=== PATIENT | female | born 1960 | race Caucasian/White ===

== ENCOUNTER 2016-12-05 12:58 | Emergency (ER) | payer OTHER ==
[~2016-12-05] VITALS: Wt 90.7 kg
[~2016-12-05 12:58] MED LIST: ALDACTONE25 M1 PO; ALPRAZOLAM XR0.5 MG PO; ALPRAZOLAM0.25 M2 PO; ALPRAZOLAM0.5 MG PO; ASPIRIN ADULT L81 M1 PO; ASPIRIN FOR CHI81 MG PO; ASPIRIN81 M1 PO; ATIVAN1 MG PO; COL-RITE100 M1 PO; COMPAZINE10 M1 PO; EFFIENT10 M1 PO; FISH OIL 500MG500 MG PO; GLUTAMENT10 GM PO; HYDROCODONE-CHLO5 ML PO; INCRUSE EL62.5 MCG/A IH; K-Lor 20MEQ20 MEQ PO; KEFLEX500 MG PO; KLOR-CON 1010 ME1 PO; LASIX40 MG PO; LIPITOR20 MG PO; LIPITOR40 MG PO; LOPRESSOR PO; LOPRESSOR25 MG PO; Lopressor25 MG PO; MAGNESIUM250 M1 PO; NAPROSYN500 MG PO; NITROSTAT0.4 MG SL; OSTEO BI-FLEX1 EAC1 PO; OXYCODONE AND A1 TA4 PO; PLAVIX75 MG PO; POTASSIUM20 MEQ PO; PRINIVIL5 M1 PO; PROTONIX TR40 MG PO; PROTONIX20 MG PO; PROTONIX40 MG PO; STOMACH PILL; TRAMADOL HCL50 MG PO; VICODIN 5/500 505 MG PO; XANAX0.25 MG PO; ZOFRAN ODT4 MG SL; ZYRTEC10 MG PO; Zofran4 MG PO
[2016-12-05] MEDS ORDERED: PROTONIX40 MG PO (13:34)
[2016-12-05] MEDS ORDERED: LASIX20 MG PO (13:34)
[2016-12-05] MEDS ORDERED: VITAMIN D5000 I3 PO (13:35)
[2016-12-05] MEDS ORDERED: DUONEB 3 MG/3 ML3 M1 INH (13:36)
[2016-12-05] MEDS ORDERED: PULMICORT RESP0.5 MG INH (13:37)
[2016-12-05 13:42] LABS: HEMATOCRIT 38.8 % (37.0-47.0); MEAN CELL VOLUME 100.3 fl (81.0-99.0); MEAN CORPUSCULAR HGB 33.6 pg (27.0-31.0); MEAN CORPUSCULAR HGB CONC 33.5 g/dl (33.0-37.0); MEAN PLATELET VOLUME 9.7 fl (9.6-12.3); PLATELET COUNT AUTOMATED 206 10*3/uL (130-400); RED BLOOD COUNT 3.87 10*6/uL (4.10-5.10); RED CELL DISTRI WIDTH 14.4 % (0-14.5); WHITE BLOOD COUNT 13.6 10*3/uL (4.8-10.8)
[2016-12-05 13:51] LABS: PROTHROMBIN TIME 10.6 SECONDS (9.0-12.4)
[2016-12-05 13:54] VITALS: BP 96/61
[2016-12-05 14:00] LABS: ALKALINE PHOSPHATASE 138 U/L (45-117); BILIRUBIN, TOTAL 0.4 mg/dl (0.2-1.0); BUN 28 mg/dl (7-24); CARBON DIOXIDE 24 mmol/L (21-32); CHLORIDE 109 mmol/L (98-107); EST GLOM FILT AFRICAN AMERICAN 52 ml/min; GLUCOSE 159 mg/dL (65-99); POTASSIUM 4.7 mmol/L (3.5-5.1); SGOT/AST 32 IU/L (3-35); SGPT/ALT 39 U/L (12-78); SODIUM 140 mmol/L (136-145); TOTAL PROTEIN 6.2 gm/dL (6.4-8.2)
[2016-12-05 14:01] LABS: LYMPHOCYTE # 0.8 10*3/uL (1.3-4.4); METAMYELOCYTES 1 % (0-0); NEUTROPHIL # 12.6 10*3/uL (2.3-7.9); NEUTROPHILS 93 % (47-73); PLATELET SUFFICIENCY NORMAL (NORMAL); TOTAL CELLS COUNTED 100 #CELLS
[2016-12-05 14:02] LABS: TROPONIN I < 0.015 ng/ml (<0.045)
[2016-12-05] MEDS ORDERED: LEVAQUIN750 M1 PO (17:34)
== END 2016-12-05 17:33 | disposition home or self-care (01) ==
LOC: ED 12:58
PROVIDERS: Emergency Medicine
DX: C34.90 Malignant neoplasm of unspecified part of unspecified bronchus or lung (principal); J18.9 Pneumonia, unspecified organism; I25.10 Atherosclerotic heart disease of native coronary artery without angina pectoris; Z90.49 Acquired absence of other specified parts of digestive tract; Z88.6 Allergy status to analgesic agent; Z79.82 Long term (current) use of aspirin; Z95.5 Presence of coronary angioplasty implant and graft; Z79.899 Other long term (current) drug therapy

== ENCOUNTER 2018-01-05 12:39 | Emergency (ER) | payer OTHER, MEDICAID ==
[~2018-01-05] VITALS: Ht 172.7 cm; Wt 92.1 kg
[~2018-01-05 12:39] MED LIST changes: +DUONEB 3 MG/3 ML3 M1 INH; +LASIX20 MG PO; +LEVAQUIN750 M1 PO; +OPDIVO40 MG/4 ML IV; +OXYCODONE HCL5 MG PO; +PULMICORT RESP0.5 MG INH; +VITAMIN D5000 I3 PO; +ZOFRAN8 M1 PO
[2018-01-05 13:09] LABS: BASO % 0.3 % (0.0-1.0); EOS # 0.1 10*3/uL (0.0-0.4); EOS % 1.7 % (1.0-4.0); HEMATOCRIT 38.6 % (37.0-47.0); HEMOGLOBIN 12.6 g/dl (12.0-16.0); LYMPH # 1.2 10*3/uL (1.3-4.4); LYMPH % 15.6 % (27.0-41.0); MEAN CELL VOLUME 102.4 fl (81.0-99.0); MEAN CORPUSCULAR HGB 33.4 pg (27.0-31.0); MEAN CORPUSCULAR HGB CONC 32.6 g/dl (33.0-37.0); MEAN PLATELET VOLUME 9.6 fl (9.6-12.3); MONO # 0.6 10*3/uL (0.1-1.0); MONO % 7.6 % (3.0-9.0); NEUT # 5.8 10*3/uL (2.3-7.9); NEUT % 74.5 % (47.0-73.0); PLATELET COUNT AUTOMATED 236 10*3/uL (130-400); RED BLOOD COUNT 3.77 10*6/uL (4.10-5.10); RED CELL DISTRI WIDTH 12.1 % (0-14.5); WHITE BLOOD COUNT 7.8 10*3/uL (4.8-10.8)
[2018-01-05 13:25] LABS: ALBUMIN 2.9 gm/dl (3.1-4.5); ALKALINE PHOSPHATASE 160 U/L (45-117); BUN 18 mg/dl (7-24); CHLORIDE 103 mmol/L (98-107); CREATININE 1.16 mg/dL (0.55-1.02); POTASSIUM 4.2 mmol/L (3.5-5.1); SGOT/AST 28 IU/L (3-35); SGPT/ALT 22 U/L (12-78); SODIUM 141 mmol/L (136-145); TOTAL PROTEIN 6.3 gm/dL (6.4-8.2)
[2018-01-05 13:27] LABS: TROPONIN I < 0.015 ng/ml (<0.045)
[2018-01-05 15:48] VITALS: BP 125/61
[2018-01-05 15:54] LABS: BILIRUBIN NEGATIVE (NEGATIVE); BLOOD NEGATIVE (NEGATIVE); CLARITY CLEAR (CLEAR); COLOR YELLOW (YELLOW); GLUCOSE NEGATIVE (NEGATIVE); KETONE NEGATIVE (NEGATIVE); LEUKO ESTERASE TRACE (NEGATIVE); NITRITE NEGATIVE (NEGATIVE); PH 5.5 (5.0-9.0); SPECIFIC GRAVITY <= 1.005 (1.005-1.030); UROBILINOGEN 0.2 E.U./dl (0.2-1.0)
[2018-01-05 16:03] LABS: BACTERIA TRACE; EPITHELIAL CELLS TNTC; RBC 0-2 rbc/hpf (0-2)
== END 2018-01-05 16:41 | disposition short-term general hospital (02) ==
LOC: ED 12:39
PROVIDERS: Emergency Medicine
DX: R55 Syncope and collapse (principal); R42 Dizziness and giddiness; I25.10 Atherosclerotic heart disease of native coronary artery without angina pectoris; I25.2 Old myocardial infarction; I95.9 Hypotension, unspecified; Z90.710 Acquired absence of both cervix and uterus; Z98.890 Other specified postprocedural states; Z88.5 Allergy status to narcotic agent; Z79.82 Long term (current) use of aspirin; Z79.899 Other long term (current) drug therapy; Z85.118 Personal history of other malignant neoplasm of bronchus and lung; Z99.81 Dependence on supplemental oxygen

== ENCOUNTER → 2018-07-09 | Outpatient (CLI) | payer OTHER, MEDICAID ==
[~2018-07-09] MED LIST changes: +CIPRO500 MG PO; +EFFIENT5 MG PO; +FLAGYL500 MG PO; +FOLTX TABLET1 EACH PO; +LEVALBUTER0.63 MG/4 INH; +MAGNESIUM OXID400 MG PO; +NEURONTIN100 MG PO; +OXYGEN NAS; +PROAIR HFA8.5 GM INH
== END | disposition home or self-care (01) ==
DX: R05 Cough (principal)

== ENCOUNTER 2019-07-30 15:37 | Inpatient (IN) | payer OTHER ==
[~2019-07-30] VITALS: Ht 175.2 cm; Wt 95.8 kg
[2019-07-30 15:43] VITALS: BP 63/43
[2019-07-30 15:52] VITALS: BP 112/80
[2019-07-30] MEDS ORDERED: BUSPAR15 MG PO (15:58)
[2019-07-30] MEDS ORDERED: ATENOLOL25 MG PO (15:59)
[2019-07-30] MEDS ORDERED: TESSALON PERLE100 MG PO (16:03)
[2019-07-30] MEDS ORDERED: BROVANA15 MCG/2 M INH (16:04)
[2019-07-30 16:25] VITALS: BP 110/82
[2019-07-30 17:15] VITALS: BP 112/74
[2019-07-30 17:28] LABS: BASO % 0.2 % (0.0-1.0); EOS # 0.2 10*3/uL (0.0-0.4); EOS % 2.1 % (1.0-4.0); HEMATOCRIT 37.3 % (37.0-47.0); HEMOGLOBIN 12.2 g/dl (12.0-16.0); LYMPH # 1.2 10*3/uL (1.3-4.4); LYMPH % 12.6 % (27.0-41.0); MEAN CELL VOLUME 98.4 fl (81.0-99.0); MEAN CORPUSCULAR HGB 32.2 pg (27.0-31.0); MEAN CORPUSCULAR HGB CONC 32.7 g/dl (33.0-37.0); MEAN PLATELET VOLUME 9.8 fl (9.6-12.3); MONO # 0.8 10*3/uL (0.1-1.0); MONO % 8.5 % (3.0-9.0); NEUT # 7.5 10*3/uL (2.3-7.9); NEUT % 76.4 % (47.0-73.0); PLATELET COUNT AUTOMATED 285 10*3/uL (130-400); RED BLOOD COUNT 3.79 10*6/uL (4.10-5.10); RED CELL DISTRI WIDTH 13.4 % (0-14.5); WHITE BLOOD COUNT 9.8 10*3/uL (4.8-10.8)
[2019-07-30 17:38] LABS: ACT PARTIAL THROMBO TIME 20.3 SECONDS (20.0-32.1); INTERNATIONAL NORM RATIO 0.9 (2.0-3.5)
[2019-07-30 17:43] LABS: ALBUMIN 2.9 gm/dl (3.1-4.5); CREATININE 1.23 mg/dL (0.55-1.02); POTASSIUM 4.5 mmol/L (3.5-5.1); TOTAL PROTEIN 6.6 gm/dL (6.4-8.2)
--- NOTE | 2019-07-30 18:00 | NUR ---
PT IN BED RESING IN FOWLERS POSITIOIN PT STATES SHE FEELS FINE LONG SHE DOES NOT EXERT HERSELF PT HAS NO REQUESTS AT THIS TIME
[2019-07-30 19:20] VITALS: BP 110/64
[2019-07-30 21:10] VITALS: BP 127/60
[2019-07-30] MEDS ORDERED: LASIX20 MG PO (21:41)
[2019-07-30] MEDS ORDERED: CELEXA20 MG PO (21:43)
[2019-07-30] MEDS ORDERED: PREDNISONE5 MG PO (21:44)
--- NOTE | 2019-07-30 22:21 | NUR ---
A 58, admitted to 5E, under the services of ARACELY Mcdaniels DO with a diagnosis of COPD. Chief complaint is SOB. Patient arrived via ambulatory from ER. Monitor applied. Initial assessment completed. Vital signs taken and recorded. ARACELY MCDANIELS DO notified of admission to the unit. Orders received. See assessment for past medical history, medications and allergies. Patient and/or family oriented to unit. [address] visitation policy reviewed. Clothing/patient valuable form completed. MARIA ESTHER HAZEL
[2019-07-31] VITALS: BP 105/63
--- NOTE | 2019-07-31 00:38 | NUR ---
PT C/O THAT SHE "WOKE UP COVERED IN SWEAT." PT CONTINUES TO BE AFEBRILE AT THIS TIME WITH A TEMPERATURE OF 97.8 PT PROVIDED WITH REQUESTED LINENS, NO OTHER CONCERNS VOICED AT THIS TIME. WILL CONTINUE TO MONITOR.
--- NOTE | 2019-07-31 06:42 | NUR ---
DR DOUGLAS NOTIFIED OF CONSULT.
[2019-07-31 06:44] LABS: HEMATOCRIT 36.5 % (37.0-47.0); HEMOGLOBIN 11.7 g/dl (12.0-16.0); MEAN CELL VOLUME 98.4 fl (81.0-99.0); MEAN CORPUSCULAR HGB 31.5 pg (27.0-31.0); MEAN CORPUSCULAR HGB CONC 32.1 g/dl (33.0-37.0); MEAN PLATELET VOLUME 10.1 fl (9.6-12.3); PLATELET COUNT AUTOMATED 202 10*3/uL (130-400); RED BLOOD COUNT 3.71 10*6/uL (4.10-5.10); RED CELL DISTRI WIDTH 13.2 % (0-14.5); WHITE BLOOD COUNT 5.9 10*3/uL (4.8-10.8)
[2019-07-31 07:01] LABS: POTASSIUM 4.5 mmol/L (3.5-5.1)
[2019-07-31 07:14] LABS: PLATELET SUFFICIENCY NORMAL (NORMAL); TOTAL CELLS COUNTED 100 #CELLS
[2019-07-31 07:16] LABS: CREATININE 1.15 mg/dL (0.55-1.02); THYROID STIM HORMONE (HS) 0.713 uIU/ml (0.358-4.75)
[2019-07-31 07:26] LABS: VITAMIN D, 25-HYDROXY 33.5 ng/mL (30-100)
--- NOTE | 2019-07-31 07:53 | NUR ---
ASSESSMENT COMPLETE, PT STATES WAS UP TO BATHROOM RECENTLY AND DID NOT FEEL SHORT OF BRAETH, OXYGEN 4 LITERS NC. NO SOB NOTED AT THIS TIME. PT STATES NO NEEDS AT THIS TIME
[2019-07-31 08:00] VITALS: BP 118/84
--- NOTE | 2019-07-31 10:11 | NUR ---
Patient resides at home with her . She is independent in ADLs. Pt has home O2 through [employer]. She has a walker but has not used it in quite some time. Patient previously had home health through [facility]. Anticipate pt discharging home without additional needs.
[2019-07-31 12:00] VITALS: BP 120/61
[2019-07-31 16:00] VITALS: BP 106/68
--- NOTE | 2019-07-31 19:11 | NUR ---
24 HR CHART CHECK COMPLETE.
[2019-07-31 20:00] VITALS: BP 103/53
[2019-08-01] VITALS: BP 101/60
[2019-08-01 06:49] LABS: HEMOGLOBIN 11.1 g/dl (12.0-16.0); MEAN CELL VOLUME 97.4 fl (81.0-99.0); MEAN CORPUSCULAR HGB 31.8 pg (27.0-31.0); MEAN CORPUSCULAR HGB CONC 32.6 g/dl (33.0-37.0); MEAN PLATELET VOLUME 10.1 fl (9.6-12.3); PLATELET COUNT AUTOMATED 261 10*3/uL (130-400); RED BLOOD COUNT 3.49 10*6/uL (4.10-5.10); RED CELL DISTRI WIDTH 13.3 % (0-14.5)
[2019-08-01 06:58] LABS: CREATININE 1.13 mg/dL (0.55-1.02); POTASSIUM 3.6 mmol/L (3.5-5.1)
[2019-08-01 07:43] LABS: PLATELET SUFFICIENCY NORMAL (NORMAL); TOTAL CELLS COUNTED 100 #CELLS
[2019-08-01 08:00] VITALS: BP 113/56
--- NOTE | 2019-08-01 09:00 | NUR ---
Sample Preparation Supervisor in to see patient. No new needs or request at this time. Discussed discharge planning with patient. She lives at home with her . Discussed home health care services and she is agreeable and would like PT services at home and here at the hospital. When provided with a list of agencies she chose [facility]. Notified Dr. Alcala of patient's wishes to have PT started while her at the hospital. She has a portable O2 tank in the closet. She states her , daughter, or son will provide transportation on discharge depending on when and who is available.
[2019-08-01 12:00] VITALS: BP 108/62
--- NOTE | 2019-08-01 15:40 | NUR ---
PHYSICAL THERAPY Chart review and pt interview done, but pt very fatigued this afternoon and requested wait. Will complete eval 08/02/19 and pt looking forward to getting stronger/being able to more easily naviagte her stairs to her 2nd floor bedroom. Kayli Leblanc, PT
[2019-08-01 16:00] VITALS: BP 108/61
[2019-08-01 20:00] VITALS: BP 104/57
--- NOTE | 2019-08-01 20:12 | NUR ---
PATIENT MEDICATED WITH ROXICODONE FOR COMPLAINTS OF 02/19. NO OTHER COMPLAINTS VOICED AT THIS TIME. WILL CHECK EFFECTIVENESS.
[2019-08-02] VITALS: BP 110/62
[2019-08-02 07:00] LABS: HEMATOCRIT 32.2 % (37.0-47.0); HEMOGLOBIN 10.4 g/dl (12.0-16.0); MEAN CELL VOLUME 99.4 fl (81.0-99.0); MEAN CORPUSCULAR HGB 32.1 pg (27.0-31.0); MEAN CORPUSCULAR HGB CONC 32.3 g/dl (33.0-37.0); PLATELET COUNT AUTOMATED 223 10*3/uL (130-400); RED BLOOD COUNT 3.24 10*6/uL (4.10-5.10); RED CELL DISTRI WIDTH 13.6 % (0-14.5); WHITE BLOOD COUNT 16.9 10*3/uL (4.8-10.8)
[2019-08-02 07:11] LABS: CREATININE 1.15 mg/dL (0.55-1.02); POTASSIUM 4.3 mmol/L (3.5-5.1)
[2019-08-02 07:19] LABS: TOTAL CELLS COUNTED 100 #CELLS
[2019-08-02 07:20] LABS: PLATELET SUFFICIENCY NORMAL (NORMAL)
[2019-08-02 08:00] VITALS: BP 127/69
--- NOTE | 2019-08-02 08:40 | NUR ---
PT SITTING UP AT SIDE OF BED. RESP-EASY AND REGULAR. NO C/O AT THIS TIME. CALL LIGHT IN REACH. OXYGEN IN USE. SEE SHIFT ASSESSMENT.
--- NOTE | 2019-08-02 10:27 | NUR ---
PHYSICAL THERAPY Aneudy completed full report to follow pt low level of complexity 16267 recomend discharge to home with f/u home health. PT to work on transfers,amb with AD, balance/safety, strengthening and energy conservation techniques. Sharifa Delaney PT
[2019-08-02] MEDS ORDERED: PREDNISONE10 MG PO (10:46)
[2019-08-02] MEDS ORDERED: ZITHROMAX250 MG PO (10:46)
--- NOTE | 2019-08-02 11:45 | NUR ---
Discharge instructions reviewed with patient/family. Patient receptive and verbalizes understanding. Follow-up care arranged. Written instructions given to patient/family. HEPLOCK REMOVED 2X2 APPLIED. PT ESCORTED VIA WHEELCHAIR FOR DISCHARGE WITH HER PORTABLE OXYGEN TANK. MANE MURO R
--- NOTE | 2019-08-02 11:55 | NUR ---
New home health referral order faxed to [facility]
== END 2019-08-02 11:45 | disposition home health service (06) | DRG 871 ==
LOC: ED 15:37 → EDHOLD 20:15 → ED 20:15 → 5E 20:40 → EDHOLD 20:40 → 5E 21:01
PROVIDERS: Emergency Medicine; Family Medicine; Internal Medicine; Student in an Organized Health Care Education/Training Program; ADMIT Family Medicine
DX: A41.9 Sepsis, unspecified organism (principal); J18.9 Pneumonia, unspecified organism; J44.1 Chronic obstructive pulmonary disease with (acute) exacerbation; E44.0 Moderate protein-calorie malnutrition; J44.0 Chronic obstructive pulmonary disease with (acute) lower respiratory infection; M48.54XA Collapsed vertebra, not elsewhere classified, thoracic region, initial encounter for fracture; J96.11 Chronic respiratory failure with hypoxia; C79.51 Secondary malignant neoplasm of bone; I25.10 Atherosclerotic heart disease of native coronary artery without angina pectoris; J84.10 Pulmonary fibrosis, unspecified; J20.9 Acute bronchitis, unspecified; E66.9 Obesity, unspecified; R65.20 Severe sepsis without septic shock; N18.3 Chronic kidney disease, stage 3 (moderate); Z87.891 Personal history of nicotine dependence; Z85.118 Personal history of other malignant neoplasm of bronchus and lung; I25.2 Old myocardial infarction; Z88.5 Allergy status to narcotic agent; Z92.21 Personal history of antineoplastic chemotherapy; Z90.710 Acquired absence of both cervix and uterus; Z90.49 Acquired absence of other specified parts of digestive tract; Z98.891 History of uterine scar from previous surgery; Z82.49 Family history of ischemic heart disease and other diseases of the circulatory system; Z84.1 Family history of disorders of kidney and ureter; Z80.8 Family history of malignant neoplasm of other organs or systems; Z79.82 Long term (current) use of aspirin; Z79.899 Other long term (current) drug therapy; Z92.3 Personal history of irradiation; Z68.30 Body mass index [BMI] 30.0-30.9, adult

== ENCOUNTER 2019-09-18 12:50 | Emergency (ER) | payer OTHER ==
[~2019-09-18] VITALS: Ht 175.2 cm; Wt 93.9 kg
[~2019-09-18 12:50] MED LIST changes: +ATENOLOL25 MG PO; +BROVANA15 MCG/2 M INH; +BUSPAR15 MG PO; +CELEXA20 MG PO; +PREDNISONE10 MG PO; +PREDNISONE5 MG PO; +TESSALON PERLE100 MG PO; +ZITHROMAX250 MG PO
[2019-09-18 13:12] VITALS: BP 110/68
[2019-09-18 13:45] LABS: BASO % 0.2 % (0.0-1.0); EOS # 0.1 10*3/uL (0.0-0.4); EOS % 1.2 % (1.0-4.0); HEMOGLOBIN 12.9 g/dl (12.0-16.0); LYMPH # 0.9 10*3/uL (1.3-4.4); LYMPH % 9.2 % (27.0-41.0); MEAN CELL VOLUME 99.8 fl (81.0-99.0); MEAN CORPUSCULAR HGB 32.2 pg (27.0-31.0); MEAN CORPUSCULAR HGB CONC 32.3 g/dl (33.0-37.0); MEAN PLATELET VOLUME 9.8 fl (9.6-12.3); MONO # 0.7 10*3/uL (0.1-1.0); NEUT # 7.6 10*3/uL (2.3-7.9); NEUT % 82.1 % (47.0-73.0); PLATELET COUNT AUTOMATED 272 10*3/uL (130-400); RED BLOOD COUNT 4.01 10*6/uL (4.10-5.10); RED CELL DISTRI WIDTH 13.6 % (0-14.5); WHITE BLOOD COUNT 9.2 10*3/uL (4.8-10.8)
[2019-09-18 13:55] LABS: ACT PARTIAL THROMBO TIME 25.1 SECONDS (20.0-32.1)
[2019-09-18 14:11] LABS: ALBUMIN 2.7 gm/dl (3.1-4.5); ALKALINE PHOSPHATASE 193 U/L (45-117); BUN 16 mg/dl (7-24); CHLORIDE 98 mmol/L (98-107); CREATININE 1.11 mg/dL (0.55-1.02); POTASSIUM 4.1 mmol/L (3.5-5.1); SGOT/AST 28 IU/L (3-35); SGPT/ALT 22 U/L (12-78); SODIUM 134 mmol/L (136-145); TOTAL PROTEIN 6.3 gm/dL (6.4-8.2)
[2019-09-18 14:23] LABS: TROPONIN I < 0.015 ng/ml (<0.045)
== END 2019-09-18 16:04 | disposition home or self-care (01) ==
LOC: ED 12:50
PROVIDERS: Emergency Medicine
DX: R00.2 Palpitations (principal); G89.29 Other chronic pain; M54.9 Dorsalgia, unspecified; J44.9 Chronic obstructive pulmonary disease, unspecified; N18.3 Chronic kidney disease, stage 3 (moderate); I50.9 Heart failure, unspecified; I25.10 Atherosclerotic heart disease of native coronary artery without angina pectoris; I25.2 Old myocardial infarction; Z88.5 Allergy status to narcotic agent; Z79.2 Long term (current) use of antibiotics; Z79.899 Other long term (current) drug therapy; Z90.710 Acquired absence of both cervix and uterus

== ENCOUNTER 2019-11-13 21:17 | Emergency (ER) | payer OTHER ==
[~2019-11-13] VITALS: Ht 175.2 cm; Wt 113.4 kg
[2019-11-13 22:02] LABS: BASO % 0.1 % (0.0-1.0); HEMATOCRIT 39.9 % (37.0-47.0); LYMPH # 0.7 10*3/uL (1.3-4.4); LYMPH % 5.8 % (27.0-41.0); MEAN CELL VOLUME 97.8 fl (81.0-99.0); MEAN CORPUSCULAR HGB 31.6 pg (27.0-31.0); MEAN CORPUSCULAR HGB CONC 32.3 g/dl (33.0-37.0); MEAN PLATELET VOLUME 9.6 fl (9.6-12.3); MONO # 0.9 10*3/uL (0.1-1.0); MONO % 7.1 % (3.0-9.0); NEUT # 10.7 10*3/uL (2.3-7.9); NEUT % 85.2 % (47.0-73.0); PLATELET COUNT AUTOMATED 361 10*3/uL (130-400); RED BLOOD COUNT 4.08 10*6/uL (4.10-5.10); RED CELL DISTRI WIDTH 13.4 % (0-14.5); WHITE BLOOD COUNT 12.5 10*3/uL (4.8-10.8)
[2019-11-13 22:17] LABS: ALBUMIN 2.8 gm/dl (3.1-4.5); ALKALINE PHOSPHATASE 211 U/L (45-117); BUN 26 mg/dl (7-24); CHLORIDE 102 mmol/L (98-107); CREATININE 1.42 mg/dL (0.55-1.02); POTASSIUM 4.3 mmol/L (3.5-5.1); SGOT/AST 35 IU/L (3-35); SGPT/ALT 33 U/L (12-78); SODIUM 139 mmol/L (136-145); TOTAL PROTEIN 6.5 gm/dL (6.4-8.2)
[2019-11-13 22:19] LABS: TROPONIN I < 0.015 ng/ml (<0.045)
[2019-11-13 22:24] VITALS: BP 115/71
== END 2019-11-13 23:22 | disposition home or self-care (01) ==
LOC: ED 21:17
PROVIDERS: Internal Medicine
DX: I50.9 Heart failure, unspecified (principal); R60.0 Localized edema; I25.10 Atherosclerotic heart disease of native coronary artery without angina pectoris; I25.2 Old myocardial infarction; N18.9 Chronic kidney disease, unspecified; Z88.5 Allergy status to narcotic agent; Z79.899 Other long term (current) drug therapy; Z79.2 Long term (current) use of antibiotics

== ENCOUNTER → 2019-12-20 | Outpatient (CLI) | payer OTHER ==
[~2019-12-20] MED LIST changes: +ALBUTEROL INH; +BREO ELLIPTA 11 EACH INH; +INCRUSE ELLI62.5 MCG INH
--- NOTE | 2019-12-20 07:15 | NUR ---
INFORMED CONSENT OBTAINED FOR LEXISCAN NUCLEAR STRESS TEST WITH DR. ASKEW. RESTING EKG SINUS TACHYCARDIA WITH A RESTING HR OF 107 WITH BP OF 104/68. LUNGS DIMINISHED BS WITH SPO2 OF 97% WITH NASAL O2 AT 2L. PT COMPLETED A 1:00 LEXISCAN PROTOCOL RECEIVING LEXISCAN 0.4 MG IV OVER 10 SECONDS. HAD NO CHEST PAIN OR ANY EKG CHANGES. DID EXPERIENCE SHORTNESS OF BREATH THAT WAS RESOLVED IN RECOVERY. HAD A PEAK HR OF 124 WITH BP OF 94/62. LAST RECOVERY HR OF 123 WITH BP OF 92/60. AWAITING SCANNING IN STABLE CONDITION.
== END | disposition home or self-care (01) ==
LOC: CARD 00:18
DX: R07.89 Other chest pain (principal); R53.81 Other malaise; R06.00 Dyspnea, unspecified; R73.03 Prediabetes

== ENCOUNTER → 2019-12-27 | Outpatient (CLI) | payer OTHER | END | disposition home or self-care (01) | LOC: CARD 12-22 00:19 | DX: R07.89 Other chest pain (principal); R06.00 Dyspnea, unspecified; E65 Localized adiposity ==

== ENCOUNTER 2020-01-30 12:57 | Inpatient (IN) | payer OTHER ==
[~2020-01-30] VITALS: Ht 175.2 cm; Wt 98.0 kg
[2020-01-30 12:57] VITALS: BP 120/65
[2020-01-30 13:28] LABS: BASO % 0.2 % (0.0-1.0); EOS # 0.1 10*3/uL (0.0-0.4); EOS % 1.2 % (1.0-4.0); HEMATOCRIT 37.3 % (37.0-47.0); LYMPH # 0.8 10*3/uL (1.3-4.4); LYMPH % 7.3 % (27.0-41.0); MEAN CORPUSCULAR HGB 31.2 pg (27.0-31.0); MEAN CORPUSCULAR HGB CONC 33.2 g/dl (33.0-37.0); MEAN PLATELET VOLUME 9.6 fl (9.6-12.3); MONO # 0.7 10*3/uL (0.1-1.0); MONO % 6.7 % (3.0-9.0); NEUT # 9.3 10*3/uL (2.3-7.9); NEUT % 84.2 % (47.0-73.0); PLATELET COUNT AUTOMATED 331 10*3/uL (130-400); RED BLOOD COUNT 3.97 10*6/uL (4.10-5.10); RED CELL DISTRI WIDTH 13.3 % (0-14.5); WHITE BLOOD COUNT 11.1 10*3/uL (4.8-10.8)
[2020-01-30 13:39] LABS: ACT PARTIAL THROMBO TIME 31.2 SECONDS (20.0-32.1); INTERNATIONAL NORM RATIO 1.1 (2.0-3.5)
[2020-01-30 13:41] LABS: COLOR YELLOW (YELLOW)
[2020-01-30 13:42] LABS: BILIRUBIN NEGATIVE (NEGATIVE); BLOOD NEGATIVE (NEGATIVE); CLARITY SL CLOUDY (CLEAR); GLUCOSE NEGATIVE (NEGATIVE); KETONE NEGATIVE (NEGATIVE); LEUKO ESTERASE 2+ (NEGATIVE); NITRITE NEGATIVE (NEGATIVE); SPECIFIC GRAVITY 1.015 (1.005-1.030); UROBILINOGEN 0.2 E.U./dl (0.2-1.0)
[2020-01-30 13:43] LABS: ALBUMIN 2.4 gm/dl (3.1-4.5); ALKALINE PHOSPHATASE 199 U/L (45-117); BUN 15 mg/dl (7-24); CHLORIDE 87 mmol/L (98-107); CREATININE 1.17 mg/dL (0.55-1.02); LIPASE 37 U/L (73-393); POTASSIUM 2.8 mmol/L (3.5-5.1); SGOT/AST 24 IU/L (3-35); SGPT/ALT 18 U/L (12-78); SODIUM 129 mmol/L (136-145); TOTAL PROTEIN 6.2 gm/dL (6.4-8.2); TROPONIN I < 0.015 ng/ml (<0.045)
[2020-01-30 13:48] LABS: BACTERIA 2+; WBC TNTC wbc/hpf (0-5)
[2020-01-30 19:13] VITALS: BP 99/61
[2020-01-30 20:10] VITALS: BP 94/76
[2020-01-30] MEDS ORDERED: Duragesic 50 M50 MCG TD (20:51)
[2020-01-30] MEDS ORDERED: HYDROMORPHONE HC4 MG PO (20:52)
[2020-01-30] MEDS ORDERED: DEXAMETHASONE4 MG PO (20:55)
[2020-01-30] MEDS ORDERED: PANTOPRAZOLE SO40 MG PO (20:56)
[2020-01-30] MEDS ORDERED: Zaroxolyn,Diul2.5 MG PO (20:57)
[2020-01-30] MEDS ORDERED: ONDANSETRON HYDR4 MG PO (20:57)
[2020-01-30] MEDS ORDERED: ATIVAN1 MG PO (20:58)
[2020-01-30] MEDS ORDERED: OXYCODONE HCL5 MG PO (20:59)
[2020-01-31] VITALS: BP 108/57
[2020-01-31 05:58] LABS: HEMATOCRIT 35.9 % (37.0-47.0); MEAN CELL VOLUME 96.8 fl (81.0-99.0); MEAN CORPUSCULAR HGB 31.3 pg (27.0-31.0); MEAN CORPUSCULAR HGB CONC 32.3 g/dl (33.0-37.0); MEAN PLATELET VOLUME 9.7 fl (9.6-12.3); PLATELET COUNT AUTOMATED 295 10*3/uL (130-400); RED BLOOD COUNT 3.71 10*6/uL (4.10-5.10); RED CELL DISTRI WIDTH 13.8 % (0-14.5); WHITE BLOOD COUNT 8.9 10*3/uL (4.8-10.8)
[2020-01-31 06:23] LABS: BUN 15 mg/dl (7-24); CHLORIDE 91 mmol/L (98-107); CREATININE 1.11 mg/dL (0.55-1.02); SODIUM 131 mmol/L (136-145)
[2020-01-31 06:25] LABS: POTASSIUM 3.9 mmol/L (3.5-5.1)
[2020-01-31 07:12] LABS: TOTAL CELLS COUNTED 100 #CELLS
[2020-01-31 07:13] LABS: BURR CELLS FEW; PLATELET SUFFICIENCY NORMAL (NORMAL)
[2020-01-31 08:00] VITALS: BP 102/60; BP 88/60
[2020-01-31 12:00] VITALS: BP 109/68
[2020-01-31 16:00] VITALS: BP 92/64
[2020-01-31 20:00] VITALS: BP 103/65
[2020-02-01] VITALS: BP 106/67
[2020-02-01 06:45] LABS: CREATININE 1.45 mg/dL (0.55-1.02)
[2020-02-01 06:50] LABS: POTASSIUM 2.8 mmol/L (3.5-5.1)
[2020-02-01 06:59] LABS: HEMATOCRIT 37.8 % (37.0-47.0); MEAN CELL VOLUME 96.9 fl (81.0-99.0); MEAN CORPUSCULAR HGB 31.5 pg (27.0-31.0); MEAN CORPUSCULAR HGB CONC 32.5 g/dl (33.0-37.0); MEAN PLATELET VOLUME 9.7 fl (9.6-12.3); RED CELL DISTRI WIDTH 13.6 % (0-14.5)
[2020-02-01 07:02] LABS: PLATELET COUNT AUTOMATED 417 10*3/uL (130-400)
[2020-02-01 07:33] LABS: PLATELET SUFFICIENCY HIGH (NORMAL); TOTAL CELLS COUNTED 100 #CELLS
[2020-02-01 08:00] VITALS: BP 104/59
[2020-02-01 12:00] VITALS: BP 104/66
[2020-02-01 16:00] VITALS: BP 104/63
[2020-02-01 19:14] LABS: CREATININE 1.22 mg/dL (0.55-1.02); POTASSIUM 3.5 mmol/L (3.5-5.1)
[2020-02-01 20:00] VITALS: BP 105/63
[2020-02-02] VITALS: BP 83/41
[2020-02-02 07:05] LABS: ALBUMIN 2.2 gm/dl (3.1-4.5); CREATININE 1.2 mg/dL (0.55-1.02); POTASSIUM 4.1 mmol/L (3.5-5.1); TOTAL PROTEIN 5.8 gm/dL (6.4-8.2)
[2020-02-02 08:00] VITALS: BP 100/72; BP 101/72
[2020-02-02] MEDS ORDERED: AMPICILLIN500 MG PO (09:09)
[2020-02-02 12:00] VITALS: BP 96/54
== END 2020-02-02 13:35 | disposition hospice, home (50) | DRG 640 ==
LOC: ED 12:57 → EDHOLD 18:03 → 4E 18:03
PROVIDERS: Internal Medicine; Internal Medicine Nephrology; Nurse Practitioner Family; ADMIT Internal Medicine
DX: E87.1 Hypo-osmolality and hyponatremia (principal); E43 Unspecified severe protein-calorie malnutrition; N30.00 Acute cystitis without hematuria; N17.9 Acute kidney failure, unspecified; J70.0 Acute pulmonary manifestations due to radiation; I50.9 Heart failure, unspecified; B95.2 Enterococcus as the cause of diseases classified elsewhere; E87.6 Hypokalemia; E87.8 Other disorders of electrolyte and fluid balance, not elsewhere classified; R73.9 Hyperglycemia, unspecified; E83.41 Hypermagnesemia; M54.9 Dorsalgia, unspecified; G89.29 Other chronic pain; I25.10 Atherosclerotic heart disease of native coronary artery without angina pectoris; N18.3 Chronic kidney disease, stage 3 (moderate); J84.10 Pulmonary fibrosis, unspecified; D64.9 Anemia, unspecified; K57.90 Diverticulosis of intestine, part unspecified, without perforation or abscess without bleeding; I25.2 Old myocardial infarction; Z90.710 Acquired absence of both cervix and uterus; Z90.49 Acquired absence of other specified parts of digestive tract; Z87.891 Personal history of nicotine dependence; Z82.49 Family history of ischemic heart disease and other diseases of the circulatory system; Z84.1 Family history of disorders of kidney and ureter; Z79.899 Other long term (current) drug therapy; Z85.118 Personal history of other malignant neoplasm of bronchus and lung; Z79.82 Long term (current) use of aspirin; Z88.5 Allergy status to narcotic agent; Z68.31 Body mass index [BMI] 31.0-31.9, adult

== ENCOUNTER → 2020-03-29 | Outpatient (CLI) | payer OTHER ==
[~2020-03-29] MED LIST changes: +AMPICILLIN500 MG PO; +DEXAMETHASONE4 MG PO; +Duragesic 50 M50 MCG TD; +HYDROMORPHONE HC4 MG PO; +ONDANSETRON HYDR4 MG PO; +PANTOPRAZOLE SO40 MG PO; +Zaroxolyn,Diul2.5 MG PO
--- NOTE | 2020-03-29 10:35 | NUR ---
PT HERE FOR BLOOD DRAW FROM [facility]. SPECIMEN DRAWN FROM [facility] PER POLICY AND PORT FLUSHED. FLUSHES WELL. SITE CLEAR. SPECIMEN TO LAB PER ORDER.
[2020-03-29 10:54] LABS: BASO % 0.2 % (0.0-1.0); EOS # 0.1 10*3/uL (0.0-0.4); EOS % 0.7 % (1.0-4.0); HEMATOCRIT 38.7 % (37.0-47.0); LYMPH # 0.9 10*3/uL (1.3-4.4); LYMPH % 8.5 % (27.0-41.0); MEAN CELL VOLUME 95.1 fl (81.0-99.0); MEAN CORPUSCULAR HGB 30.5 pg (27.0-31.0); MEAN PLATELET VOLUME 9.8 fl (9.6-12.3); MONO # 0.6 10*3/uL (0.1-1.0); MONO % 5.9 % (3.0-9.0); NEUT # 9.2 10*3/uL (2.3-7.9); NEUT % 84.2 % (47.0-73.0); PLATELET COUNT AUTOMATED 218 10*3/uL (130-400); RED BLOOD COUNT 4.07 10*6/uL (4.10-5.10); RED CELL DISTRI WIDTH 14.9 % (0-14.5); WHITE BLOOD COUNT 10.9 10*3/uL (4.8-10.8)
[2020-03-29 11:22] LABS: ALBUMIN 2.7 gm/dl (3.1-4.5); ALKALINE PHOSPHATASE 175 U/L (45-117); BUN 16 mg/dl (7-24); CHLORIDE 101 mmol/L (98-107); CHOLESTEROL 155 mg/dL (<200); CREATININE 1.02 mg/dL (0.55-1.02); HDL CHOLESTEROL 104 mg/dl (40-60); LDL CHOLESTEROL 31 mg/dL (9-159); POTASSIUM 3.9 mmol/L (3.5-5.1); SGOT/AST 20 IU/L (3-35); SGPT/ALT 40 U/L (12-78); SODIUM 137 mmol/L (136-145); TRIGLYCERIDES 101 mg/dl (<150); VLDL CHOLESTEROL 20 mg/dL (6-40)
[2020-03-29 11:48] LABS: ACT PARTIAL THROMBO TIME 23.9 SECONDS (20.0-32.1)
== END | disposition home or self-care (01) ==
LOC: MEDIPORT 10:00 → SDC 10:00
PROVIDERS: ATTEND Nurse Practitioner Primary Care
DX: I12.9 Hypertensive chronic kidney disease with stage 1 through stage 4 chronic kidney disease, or unspecified chronic kidney disease (principal); N18.3 Chronic kidney disease, stage 3 (moderate); E55.9 Vitamin D deficiency, unspecified; E78.2 Mixed hyperlipidemia; R04.0 Epistaxis; Z79.899 Other long term (current) drug therapy

== ENCOUNTER → 2020-04-04 | Outpatient (CLI) | payer OTHER ==
[~2020-04-04] MED LIST changes: +PROMETH-CODEIN 65 ML PO
== END | disposition home or self-care (01) ==
LOC: RAD 11:55
PROVIDERS: ATTEND Nurse Practitioner Primary Care
DX: M17.12 Unilateral primary osteoarthritis, left knee (principal); M25.762 Osteophyte, left knee

== ENCOUNTER 2020-05-10 16:56 | Inpatient (IN) | payer OTHER ==
[~2020-05-10] VITALS: Ht 175.3 cm; Wt 96.3 kg
[2020-05-10 09:40] VITALS: BP 104/55
[2020-05-10 17:00] VITALS: BP 102/57
[2020-05-10 17:35] LABS: BASO % 0.4 % (0.0-1.0); EOS # 0.1 10*3/uL (0.0-0.4); EOS % 1.1 % (1.0-4.0); HEMATOCRIT 35.6 % (37.0-47.0); LYMPH # 0.7 10*3/uL (1.3-4.4); LYMPH % 9.2 % (27.0-41.0); MEAN CELL VOLUME 96.5 fl (81.0-99.0); MEAN CORPUSCULAR HGB 30.9 pg (27.0-31.0); MEAN PLATELET VOLUME 9.5 fl (9.6-12.3); MONO # 0.6 10*3/uL (0.1-1.0); MONO % 7.4 % (3.0-9.0); NEUT # 6.5 10*3/uL (2.3-7.9); NEUT % 81.5 % (47.0-73.0); PLATELET COUNT AUTOMATED 261 10*3/uL (130-400); RED BLOOD COUNT 3.69 10*6/uL (4.10-5.10)
[2020-05-10 17:45] LABS: ACT PARTIAL THROMBO TIME 25.7 SECONDS (20.0-32.1); INTERNATIONAL NORM RATIO 1.1 (2.0-3.5)
[2020-05-10 17:50] LABS: ALBUMIN 2.2 gm/dl (3.1-4.5); ALKALINE PHOSPHATASE 185 U/L (45-117); BUN 13 mg/dl (7-24); CHLORIDE 97 mmol/L (98-107); CREATININE 1.17 mg/dL (0.55-1.02); LIPASE 56 U/L (73-393); SGOT/AST 28 IU/L (3-35); SGPT/ALT 25 U/L (12-78); SODIUM 135 mmol/L (136-145); TOTAL PROTEIN 5.6 gm/dL (6.4-8.2)
[2020-05-10 17:53] LABS: TROPONIN I < 0.015 ng/ml (<0.045)
[2020-05-10 18:30] VITALS: BP 112/66
--- NOTE | 2020-05-10 19:52 | NUR ---
PT USED BEDSIDE COMMODE WITH NO DISTRESS. PLACED HERSELF BACK ON THE COT. NO DISTRESS AT THIS TIME
[2020-05-10 20:57] VITALS: BP 104/67
[2020-05-11] VITALS (10 sets, daily range): BP systolic 85–108; BP diastolic 50–69
--- NOTE | 2020-05-11 02:32 | NUR ---
PT REPOSITIONED IN BED.VITALS REASSESSED.PT OFFERED HOSPITAL BED.PT DENIES BED AT THIS TIME.CALL JARAMILLO IS WITHIN REACH.
[2020-05-11 05:56] LABS: BASO % 0.4 % (0.0-1.0); EOS # 0.1 10*3/uL (0.0-0.4); EOS % 1.4 % (1.0-4.0); HEMATOCRIT 34.7 % (37.0-47.0); LYMPH # 0.8 10*3/uL (1.3-4.4); LYMPH % 10.5 % (27.0-41.0); MEAN CELL VOLUME 97.2 fl (81.0-99.0); MEAN CORPUSCULAR HGB 31.4 pg (27.0-31.0); MEAN CORPUSCULAR HGB CONC 32.3 g/dl (33.0-37.0); MEAN PLATELET VOLUME 9.8 fl (9.6-12.3); MONO # 0.5 10*3/uL (0.1-1.0); MONO % 7.3 % (3.0-9.0); NEUT # 5.8 10*3/uL (2.3-7.9); NEUT % 79.8 % (47.0-73.0); PLATELET COUNT AUTOMATED 267 10*3/uL (130-400); RED BLOOD COUNT 3.57 10*6/uL (4.10-5.10); RED CELL DISTRI WIDTH 15.1 % (0-14.5); WHITE BLOOD COUNT 7.3 10*3/uL (4.8-10.8)
[2020-05-11 06:12] LABS: ALBUMIN 2.1 gm/dl (3.1-4.5); CREATININE 1.18 mg/dL (0.55-1.02); POTASSIUM 3.1 mmol/L (3.5-5.1); TOTAL PROTEIN 5.5 gm/dL (6.4-8.2)
[2020-05-11 06:20] LABS: INTERNATIONAL NORM RATIO 1.1 (2.0-3.5)
--- NOTE | 2020-05-11 07:50 | NUR ---
NOTIFIED DR. MUÑOZ OF BP OF 88/. ORDERS TO CONTINUE TO MONITOR PT.
--- NOTE | 2020-05-11 08:50 | NUR ---
GAVE PT. BREAKFAST TRAY. PT. UP AND TO BEDSIDE COMMODE.
--- NOTE | 2020-05-11 09:40 | NUR ---
A 59, admitted to 5E, under the services of ARACELY Mcdaniels DO with a diagnosis of ACUTE HEART FAILURE. Chief complaint is SHORT OF BREATH. Patient arrived via stretcher from ER. Monitor applied. Initial assessment completed. Vital signs taken and recorded. ARACELY MCDANIELS DO notified of admission to the unit. Orders received. See assessment for past medical history, medications and allergies. Patient and/or family oriented to unit. [facility] visitation policy reviewed. Clothing/patient valuable form completed. DAPHNE TAYLOR
--- NOTE | 2020-05-11 13:09 | NUR ---
DR. ASKEW IS OUT OF TOWN HE TOLD ME TO CALL DR. CHOW. DR. CHOW AWARE OF CONSULT WILL SEE PATIENT LATER TODAY OR IN AM.
--- NOTE | 2020-05-11 14:54 | NUR ---
Merchant Seaman in to talk to patient. Patient states lives at HOME with . There are 10 steps in the home. Physician: Jv DHILLON Pharmacy: [address] Home health services: NONE Patient's level of ADLs: INDEPENDENT Patient has working utilities: YES DME: OXYGEN THROUGH [employer] Follow-up physician's appointment after d/c: WILL BE MADE BY HOSPITALIST NURSE DIRECTOR ON DISCHARGE Does patient want to access PORTAL?: NO Discharge plan PT LIVES AT HOME WITH AND IS MOSTLY INDEPENDENT IN HER CARE. STATES SHE HAS HOME OXYGEN AND A WALKER AT HOME. DENIES SHE HAS ANY OTHER NEEDS AT THIS TIME. WILL CONTINUE TO FOLLOW. STATES SHE WILL HAVE A RIDE HOME. . ARETHA LAWTON
--- NOTE | 2020-05-11 16:23 | NUR ---
RESUME HOME HEALTH FAXED TO [facility].
[2020-05-11] MEDS ORDERED: ACYCLOVIR5 GM T (16:44)
[2020-05-12] VITALS: BP 93/60
--- NOTE | 2020-05-12 00:28 | NUR ---
24 HR chart check completed.
[2020-05-12 07:25] LABS: CREATININE 1.25 mg/dL (0.55-1.02); POTASSIUM 3.9 mmol/L (3.5-5.1)
[2020-05-12 12:00] VITALS: BP 110/63
[2020-05-12] MEDS ORDERED: LASIX40 MG PO (13:28)
--- NOTE | 2020-05-12 13:53 | NUR ---
[facility] Discharge instructions reviewed with patient/family. Patient receptive and verbalizes understanding. Follow-up care arranged. Written instructions given to patient/family. FAUSTINA RAM
== END 2020-05-12 14:28 | disposition home health service (06) | DRG 189 ==
LOC: ED 16:56 → 5E 18:22 → EDHOLD 18:22 → 5E 05-11 09:35
PROVIDERS: Emergency Medicine; Internal Medicine; ADMIT Family Medicine; ATTEND Family Medicine
PROC: 02HV33Z Insertion of Infusion Device into Superior Vena Cava, Percutaneous Approach (ICD-10-PCS; principal; 2020-05-10)
DX: J96.01 Acute respiratory failure with hypoxia (principal); E43 Unspecified severe protein-calorie malnutrition; E87.1 Hypo-osmolality and hyponatremia; R65.10 Systemic inflammatory response syndrome (SIRS) of non-infectious origin without acute organ dysfunction; D64.9 Anemia, unspecified; J84.10 Pulmonary fibrosis, unspecified; E87.8 Other disorders of electrolyte and fluid balance, not elsewhere classified; I25.10 Atherosclerotic heart disease of native coronary artery without angina pectoris; N18.31 Chronic kidney disease, stage 3a; M54.9 Dorsalgia, unspecified; G89.29 Other chronic pain; E87.6 Hypokalemia; Z85.118 Personal history of other malignant neoplasm of bronchus and lung; Z90.710 Acquired absence of both cervix and uterus; Z90.49 Acquired absence of other specified parts of digestive tract; Z98.891 History of uterine scar from previous surgery; Z82.49 Family history of ischemic heart disease and other diseases of the circulatory system; Z88.5 Allergy status to narcotic agent; Z79.82 Long term (current) use of aspirin; Z79.899 Other long term (current) drug therapy; Z87.891 Personal history of nicotine dependence; Z68.31 Body mass index [BMI] 31.0-31.9, adult; R60.9 Edema, unspecified; E88.09 Other disorders of plasma-protein metabolism, not elsewhere classified

== ENCOUNTER → 2020-06-05 | Outpatient (CLI) | payer OTHER ==
[~2020-06-05] MED LIST changes: +ACYCLOVIR5 GM T; +DECADRON6 M1 PO; +LEVOFLOXACIN750 M2 PO
== END | disposition home or self-care (01) ==
LOC: COVID19 13:32
PROVIDERS: ATTEND Internal Medicine Critical Care Medicine
DX: Z20.828 Contact with and (suspected) exposure to other viral communicable diseases (principal)

== ENCOUNTER 2020-07-17 14:19 | Emergency (ER) | payer OTHER ==
[~2020-07-17] VITALS: Wt 91.6 kg
[~2020-07-17 14:19] MED LIST changes: -DECADRON6 M1 PO; -LEVOFLOXACIN750 M2 PO
[2020-07-17 15:08] LABS: BASO % 0.2 % (0.0-1.0); EOS # 0.1 10*3/uL (0.0-0.4); EOS % 0.9 % (1.0-4.0); HEMATOCRIT 38.3 % (37.0-47.0); LYMPH # 0.7 10*3/uL (1.3-4.4); LYMPH % 7.1 % (27.0-41.0); MEAN CELL VOLUME 93.9 fl (81.0-99.0); MEAN CORPUSCULAR HGB 28.9 pg (27.0-31.0); MEAN CORPUSCULAR HGB CONC 30.8 g/dl (33.0-37.0); MEAN PLATELET VOLUME 9.4 fl (9.6-12.3); MONO # 0.6 10*3/uL (0.1-1.0); MONO % 6.4 % (3.0-9.0); NEUT # 7.9 10*3/uL (2.3-7.9); NEUT % 85.2 % (47.0-73.0); PLATELET COUNT AUTOMATED 378 10*3/uL (130-400); RED BLOOD COUNT 4.08 10*6/uL (4.10-5.10); RED CELL DISTRI WIDTH 14.4 % (0-14.5); WHITE BLOOD COUNT 9.3 10*3/uL (4.8-10.8)
[2020-07-17 15:18] LABS: ACT PARTIAL THROMBO TIME 22.8 SECONDS (20.0-32.1); INTERNATIONAL NORM RATIO 1.1 (2.0-3.5)
[2020-07-17 15:24] LABS: ALBUMIN 2.4 gm/dl (3.1-4.5); ALKALINE PHOSPHATASE 170 U/L (45-117); BUN 8 mg/dl (7-24); CHLORIDE 101 mmol/L (98-107); CREATININE 0.94 mg/dL (0.55-1.02); LIPASE 44 U/L (73-393); SGOT/AST 28 IU/L (3-35); SGPT/ALT 14 U/L (12-78); SODIUM 137 mmol/L (136-145)
[2020-07-17 15:25] LABS: TROPONIN I < 0.015 ng/ml (<0.045)
[2020-07-17 17:50] VITALS: BP 149/70
[2020-07-17] MEDS ORDERED: LEVOFLOXACIN750 M2 PO (18:28)
[2020-07-17] MEDS ORDERED: DECADRON6 M1 PO (18:28)
== END 2020-07-17 18:51 | disposition home or self-care (01) ==
LOC: ED 14:19
PROVIDERS: Emergency Medicine
DX: J18.9 Pneumonia, unspecified organism (principal); Z20.828 Contact with and (suspected) exposure to other viral communicable diseases; Z88.6 Allergy status to analgesic agent; Z79.899 Other long term (current) drug therapy; Z79.82 Long term (current) use of aspirin; Z87.891 Personal history of nicotine dependence

== ENCOUNTER → 2020-08-31 | Outpatient (CLI) | payer OTHER ==
[~2020-08-31] MED LIST changes: +DECADRON6 M1 PO; +LEVOFLOXACIN750 M2 PO
== END | disposition home or self-care (01) ==
LOC: COVID19 10:25
PROVIDERS: ATTEND Nurse Practitioner Primary Care
DX: Z20.822 Contact with and (suspected) exposure to COVID-19 (principal)

== ENCOUNTER → 2020-10-04 | Outpatient (CLI) | payer MEDICARE, OTHER | END | disposition home or self-care (01) | LOC: RAD 09:35 | PROVIDERS: ATTEND Nurse Practitioner Primary Care | DX: I51.7 Cardiomegaly (principal); R91.8 Other nonspecific abnormal finding of lung field ==

== ENCOUNTER 2021-01-01 11:29 | Inpatient (IN) | payer MEDICARE, OTHER ==
[~2021-01-01] VITALS: Ht 172.7 cm; Wt 88.1 kg
[2021-01-01 11:32] VITALS: BP 116/65
[2021-01-01 12:14] LABS: HEMATOCRIT 35.4 % (37.0-47.0); MEAN CELL VOLUME 92.7 fl (81.0-99.0); MEAN CORPUSCULAR HGB 29.1 pg (27.0-31.0); MEAN CORPUSCULAR HGB CONC 31.4 g/dl (33.0-37.0); MEAN PLATELET VOLUME 9.6 fl (9.6-12.3); PLATELET COUNT AUTOMATED 327 10*3/uL (130-400); RED BLOOD COUNT 3.82 10*6/uL (4.10-5.10); RED CELL DISTRI WIDTH 15.6 % (0-14.5); WHITE BLOOD COUNT 7.5 10*3/uL (4.8-10.8)
[2021-01-01 12:30] LABS: BASOPHILS 2 % (0-1); BURR CELLS FEW; PLATELET SUFFICIENCY NORMAL (NORMAL); TOTAL CELLS COUNTED 100 #CELLS
[2021-01-01 12:31] LABS: ALKALINE PHOSPHATASE 133 U/L (45-117); BUN 6 mg/dl (7-24); CHLORIDE 104 mmol/L (98-107); CREATININE 0.59 mg/dL (0.55-1.02); POTASSIUM 4.1 mmol/L (3.5-5.1); SGOT/AST 31 IU/L (3-35); SGPT/ALT 13 U/L (12-78); SODIUM 138 mmol/L (136-145); TOTAL PROTEIN 5.4 gm/dL (6.4-8.2)
[2021-01-01 12:32] LABS: TROPONIN I < 0.015 ng/ml (<0.045)
[2021-01-01 13:37] LABS: BILIRUBIN Negative (Negative); BLOOD Negative (Negative); CLARITY Clear (Clear); COLOR Yellow (Yellow); GLUCOSE Negative (Negative); KETONE Negative (Negative); LEUKO ESTERASE Negative (Negative); NITRITE Negative (Negative); UROBILINOGEN 0.2 E.U./dl (0.0-1.0)
[2021-01-01 13:47] LABS: PH 8.5 (4.5-8.0)
[2021-01-01 14:30] LABS: BACTERIA TRACE; EPITHELIAL CELLS 16-20
[2021-01-01 14:48] VITALS: BP 110/64
[2021-01-01] MEDS ORDERED: DULOXETINE HCL20 MG PO (16:01)
[2021-01-01] MEDS ORDERED: HYDROXYZINE HCL25 MG PO (16:01)
[2021-01-01] MEDS ORDERED: MORPHINE SULFAT30 M9 PO ×2 (16:06→18:27)
[2021-01-01] MEDS ORDERED: OXYCODONE HCL10 M1 PO (16:11)
[2021-01-01 17:25] VITALS: BP 127/67
[2021-01-01] MEDS ORDERED: LASIX40 MG PO (18:13)
[2021-01-01] MEDS ORDERED: ATIVAN1 MG PO (18:18)
[2021-01-01] MEDS ORDERED: MUCINEX ER600 MG PO (18:21)
[2021-01-01] MEDS ORDERED: TRELEGY ELLIPT1 EACH INH (18:22)
[2021-01-01] MEDS ORDERED: VALACYCLOVIR H500 MG PO (18:25)
[2021-01-01 20:00] VITALS: BP 101/54
[2021-01-02] VITALS: BP 102/68
[2021-01-02 06:34] LABS: HEMATOCRIT 37.1 % (37.0-47.0); LYMPH # 0.5 10*3/uL (1.3-4.4); LYMPH % 10.7 % (27.0-41.0); MEAN CELL VOLUME 93.5 fl (81.0-99.0); MEAN PLATELET VOLUME 9.9 fl (9.6-12.3); MONO # 0.1 10*3/uL (0.1-1.0); MONO % 2.3 % (3.0-9.0); NEUT # 3.8 10*3/uL (2.3-7.9); NEUT % 86.5 % (47.0-73.0); PLATELET COUNT AUTOMATED 343 10*3/uL (130-400); RED BLOOD COUNT 3.97 10*6/uL (4.10-5.10); RED CELL DISTRI WIDTH 15.6 % (0-14.5); WHITE BLOOD COUNT 4.4 10*3/uL (4.8-10.8)
[2021-01-02 07:10] LABS: ALBUMIN 2.2 gm/dl (3.1-4.5); ALKALINE PHOSPHATASE 135 U/L (45-117); BUN 8 mg/dl (7-24); CHLORIDE 97 mmol/L (98-107); CHOLESTEROL 108 mg/dL (<200); CREATININE 0.97 mg/dL (0.55-1.02); LDL CHOLESTEROL 30 mg/dL (9-159); POTASSIUM 4.1 mmol/L (3.5-5.1); SGOT/AST 27 IU/L (3-35); SGPT/ALT 14 U/L (12-78); SODIUM 137 mmol/L (136-145); TRIGLYCERIDES 49 mg/dl (<150)
[2021-01-02 07:15] LABS: VITAMIN D, 25-HYDROXY 55.7 ng/mL (30-100)
[2021-01-02 08:00] VITALS: BP 118/54
[2021-01-02 12:00] VITALS: BP 111/69
[2021-01-02 16:00] VITALS: BP 111/65
[2021-01-02 20:00] VITALS: BP 112/67
[2021-01-03] VITALS: BP 112/67
[2021-01-03 12:00] VITALS: BP 95/73
[2021-01-03 13:00] VITALS: BP 110/60
[2021-01-03] MEDS ORDERED: ATIVAN1 MG PO (15:48)
[2021-01-03] MEDS ORDERED: MORPHINE SULFAT30 M9 PO (15:48)
[2021-01-03] MEDS ORDERED: OXYCODONE HCL5 MG PO (15:48)
[2021-01-03] MEDS ORDERED: PHARMASSURE FO0.4 MG PO (15:48)
[2021-01-03] MEDS ORDERED: PREDNISONE10 MG PO (15:49)
[2021-01-03] MEDS ORDERED: DOXYCYCLINE100 M3 PO (15:49)
[2021-01-03] MEDS ORDERED: Ipratropium Brom3 ML NEB (15:51)
[2021-01-03 16:00] VITALS: BP 110/68
== END 2021-01-03 18:08 | DRG 871 ==
LOC: ED 11:29 → EDHOLD 14:52 → 4E 14:52
PROVIDERS: Internal Medicine; Physician Assistant; ADMIT Internal Medicine; ATTEND Internal Medicine
DX: A41.9 Sepsis, unspecified organism (principal); I50.33 Acute on chronic diastolic (congestive) heart failure; E43 Unspecified severe protein-calorie malnutrition; J18.9 Pneumonia, unspecified organism; J44.1 Chronic obstructive pulmonary disease with (acute) exacerbation; J44.0 Chronic obstructive pulmonary disease with (acute) lower respiratory infection; J84.10 Pulmonary fibrosis, unspecified; N18.30 Chronic kidney disease, stage 3 unspecified; M54.9 Dorsalgia, unspecified; G89.29 Other chronic pain; R73.9 Hyperglycemia, unspecified; I25.10 Atherosclerotic heart disease of native coronary artery without angina pectoris; D64.9 Anemia, unspecified; Z79.82 Long term (current) use of aspirin; Z79.899 Other long term (current) drug therapy; Z90.710 Acquired absence of both cervix and uterus; Z90.49 Acquired absence of other specified parts of digestive tract; Z82.49 Family history of ischemic heart disease and other diseases of the circulatory system; Z84.1 Family history of disorders of kidney and ureter; Z99.81 Dependence on supplemental oxygen; I25.2 Old myocardial infarction; Z95.5 Presence of coronary angioplasty implant and graft; Z85.118 Personal history of other malignant neoplasm of bronchus and lung; Z68.29 Body mass index [BMI] 29.0-29.9, adult; Z20.822 Contact with and (suspected) exposure to COVID-19

== ENCOUNTER 2021-01-28 10:39 | Inpatient (IN) | payer MEDICARE, OTHER ==
[~2021-01-28] VITALS: Ht 172.7 cm; Wt 87.6 kg
[2021-01-28] VITALS (11 sets, daily range): BP systolic 84–126; BP diastolic 46–69
[~2021-01-28 10:39] MED LIST changes: +DOXYCYCLINE100 M3 PO; +DULOXETINE HCL20 MG PO; +HYDROXYZINE HCL25 MG PO; +Ipratropium Brom3 ML NEB; +MORPHINE SULFAT30 M9 PO; +MUCINEX ER600 MG PO; +OXYCODONE HCL10 M1 PO; +PHARMASSURE FO0.4 MG PO; +TRELEGY ELLIPT1 EACH INH; +VALACYCLOVIR H500 MG PO
[2021-01-28 11:22] LABS: BASO % 0.3 % (0.0-1.0); EOS # 0.3 10*3/uL (0.0-0.4); HEMATOCRIT 34.8 % (37.0-47.0); LYMPH # 0.6 10*3/uL (1.3-4.4); LYMPH % 7.4 % (27.0-41.0); MEAN CELL VOLUME 91.1 fl (81.0-99.0); MEAN CORPUSCULAR HGB 29.3 pg (27.0-31.0); MEAN CORPUSCULAR HGB CONC 32.2 g/dl (33.0-37.0); MEAN PLATELET VOLUME 9.9 fl (9.6-12.3); MONO # 0.5 10*3/uL (0.1-1.0); MONO % 6.9 % (3.0-9.0); NEUT % 81.1 % (47.0-73.0); PLATELET COUNT AUTOMATED 282 10*3/uL (130-400); RED BLOOD COUNT 3.82 10*6/uL (4.10-5.10); RED CELL DISTRI WIDTH 16.2 % (0-14.5); WHITE BLOOD COUNT 7.4 10*3/uL (4.8-10.8)
[2021-01-28 11:37] LABS: ALBUMIN 2.3 gm/dl (3.1-4.5); ALKALINE PHOSPHATASE 230 U/L (45-117); BUN 10 mg/dl (7-24); CHLORIDE 96 mmol/L (98-107); POTASSIUM 3.7 mmol/L (3.5-5.1); SGOT/AST 25 IU/L (3-35); SGPT/ALT 17 U/L (12-78); SODIUM 134 mmol/L (136-145); TOTAL PROTEIN 5.8 gm/dL (6.4-8.2)
[2021-01-28 11:38] LABS: TROPONIN I < 0.015 ng/ml (<0.045)
[2021-01-28 11:55] LABS: BILIRUBIN Negative (Negative); BLOOD Negative (Negative); CLARITY Clear (Clear); COLOR Yellow (Yellow); GLUCOSE Negative (Negative); KETONE Negative (Negative); LEUKO ESTERASE Trace (Negative); NITRITE Negative (Negative); PH 7.5 (4.5-8.0); SPECIFIC GRAVITY <= 1.005 (1.001-1.030); UROBILINOGEN 0.2 E.U./dl (0.0-1.0)
[2021-01-28 12:09] LABS: RBC 0-2 rbc/hpf (0-2)
[2021-01-28] MEDS ORDERED: CHAMOSYN OINTMEN5 GM TP (21:59)
[2021-01-28] MEDS ORDERED: OXYCODONE HCL5 M1 PO (22:02)
[2021-01-28] MEDS ORDERED: COLACE100 MG PO (22:03)
[2021-01-29] MEDS ORDERED: POTASSIUM CHLO20 ME4 PO (00:09)
[2021-01-29 05:38] VITALS: BP 100/60
[2021-01-29 06:07] LABS: BASO % 0.3 % (0.0-1.0); EOS # 0.3 10*3/uL (0.0-0.4); EOS % 5.5 % (1.0-4.0); LYMPH # 0.9 10*3/uL (1.3-4.4); LYMPH % 13.7 % (27.0-41.0); MEAN CELL VOLUME 91.2 fl (81.0-99.0); MEAN CORPUSCULAR HGB 28.8 pg (27.0-31.0); MEAN CORPUSCULAR HGB CONC 31.6 g/dl (33.0-37.0); MEAN PLATELET VOLUME 9.9 fl (9.6-12.3); MONO # 0.4 10*3/uL (0.1-1.0); MONO % 6.8 % (3.0-9.0); NEUT # 4.6 10*3/uL (2.3-7.9); NEUT % 73.5 % (47.0-73.0); PLATELET COUNT AUTOMATED 279 10*3/uL (130-400); RED BLOOD COUNT 3.51 10*6/uL (4.10-5.10); RED CELL DISTRI WIDTH 16.1 % (0-14.5); WHITE BLOOD COUNT 6.2 10*3/uL (4.8-10.8)
[2021-01-29 06:16] LABS: ALBUMIN 1.9 gm/dl (3.1-4.5); ALKALINE PHOSPHATASE 183 U/L (45-117); BUN 8 mg/dl (7-24); CHLORIDE 96 mmol/L (98-107); CREATININE 0.73 mg/dL (0.55-1.02); POTASSIUM 3.3 mmol/L (3.5-5.1); SGOT/AST 24 IU/L (3-35); SGPT/ALT 15 U/L (12-78); SODIUM 135 mmol/L (136-145)
[2021-01-29 06:22] LABS: FREE T4 1.38 ng/dl (0.76-1.46)
[2021-01-29 08:00] VITALS: BP 96/62
[2021-01-29 12:00] VITALS: BP 88/51
[2021-01-29 16:00] VITALS: BP 118/78
[2021-01-29 20:00] VITALS: BP 107/65
[2021-01-30] VITALS: BP 110/67
[2021-01-30 05:57] LABS: BUN 11 mg/dl (7-24); CHLORIDE 96 mmol/L (98-107); CREATININE 0.75 mg/dL (0.55-1.02); POTASSIUM 4.1 mmol/L (3.5-5.1); SODIUM 132 mmol/L (136-145)
[2021-01-30 06:05] LABS: HEMATOCRIT 31.5 % (37.0-47.0); LYMPH # 0.3 10*3/uL (1.3-4.4); LYMPH % 8.7 % (27.0-41.0); MEAN CORPUSCULAR HGB 28.9 pg (27.0-31.0); MEAN CORPUSCULAR HGB CONC 31.7 g/dl (33.0-37.0); MEAN PLATELET VOLUME 10.2 fl (9.6-12.3); MONO # 0.1 10*3/uL (0.1-1.0); MONO % 1.5 % (3.0-9.0); NEUT # 3.5 10*3/uL (2.3-7.9); NEUT % 89.3 % (47.0-73.0); PLATELET COUNT AUTOMATED 277 10*3/uL (130-400); RED BLOOD COUNT 3.46 10*6/uL (4.10-5.10); WHITE BLOOD COUNT 3.9 10*3/uL (4.8-10.8)
[2021-01-30 08:00] VITALS: BP 106/67
[2021-01-30] MEDS ORDERED: PREDNISONE10 MG PO (08:55)
[2021-01-30] MEDS ORDERED: OXYCODONE HCL5 MG PO (08:55)
[2021-01-30] MEDS ORDERED: ATIVAN1 MG PO (08:55)
[2021-01-30] MEDS ORDERED: MORPHINE SULFAT15 M7 PO (08:55)
[2021-01-30 12:00] VITALS: BP 110/54
== END 2021-01-30 13:01 | DRG 391 ==
LOC: ED 10:39 → EDHOLD 13:19 → 5E 13:19 → EDHOLD 13:37 → 5E 22:24
PROVIDERS: Emergency Medicine; Internal Medicine; ADMIT Internal Medicine; ATTEND Internal Medicine
DX: K21.9 Gastro-esophageal reflux disease without esophagitis (principal); R57.1 Hypovolemic shock; E44.0 Moderate protein-calorie malnutrition; I50.32 Chronic diastolic (congestive) heart failure; E87.1 Hypo-osmolality and hyponatremia; I13.0 Hypertensive heart and chronic kidney disease with heart failure and stage 1 through stage 4 chronic kidney disease, or unspecified chronic kidney disease; I25.10 Atherosclerotic heart disease of native coronary artery without angina pectoris; J84.10 Pulmonary fibrosis, unspecified; D64.9 Anemia, unspecified; I95.9 Hypotension, unspecified; E87.8 Other disorders of electrolyte and fluid balance, not elsewhere classified; R73.9 Hyperglycemia, unspecified; N18.9 Chronic kidney disease, unspecified; Z90.49 Acquired absence of other specified parts of digestive tract; Z90.710 Acquired absence of both cervix and uterus; Z98.891 History of uterine scar from previous surgery; Z82.49 Family history of ischemic heart disease and other diseases of the circulatory system; Z79.82 Long term (current) use of aspirin; Z79.899 Other long term (current) drug therapy; Z68.29 Body mass index [BMI] 29.0-29.9, adult

== ENCOUNTER 2021-02-21 14:12 | Inpatient (IN) | payer MEDICARE, OTHER ==
[~2021-02-21] VITALS: Ht 172 cm; Wt 83.6 kg
[~2021-02-21 14:12] MED LIST changes: +CHAMOSYN OINTMEN5 GM TP; +COLACE100 MG PO; +MORPHINE SULFAT15 M7 PO; +OXYCODONE HCL5 M1 PO; +POTASSIUM CHLO20 ME4 PO
[2021-02-21 14:22] VITALS: BP 96/63
[2021-02-21 14:34] LABS: BASO % 0.3 % (0.0-1.0); EOS # 0.5 10*3/uL (0.0-0.4); EOS % 5.2 % (1.0-4.0); HEMATOCRIT 33.3 % (37.0-47.0); LYMPH # 1.1 10*3/uL (1.3-4.4); LYMPH % 10.9 % (27.0-41.0); MEAN CELL VOLUME 90.7 fl (81.0-99.0); MEAN CORPUSCULAR HGB 28.6 pg (27.0-31.0); MEAN CORPUSCULAR HGB CONC 31.5 g/dl (33.0-37.0); MEAN PLATELET VOLUME 9.6 fl (9.6-12.3); MONO # 0.5 10*3/uL (0.1-1.0); MONO % 5.4 % (3.0-9.0); NEUT # 7.7 10*3/uL (2.3-7.9); NEUT % 77.9 % (47.0-73.0); PLATELET COUNT AUTOMATED 347 10*3/uL (130-400); RED BLOOD COUNT 3.67 10*6/uL (4.10-5.10); RED CELL DISTRI WIDTH 16.3 % (0-14.5); WHITE BLOOD COUNT 9.8 10*3/uL (4.8-10.8)
[2021-02-21 15:06] LABS: ALBUMIN 2.1 gm/dl (3.1-4.5); ALKALINE PHOSPHATASE 173 U/L (45-117); BUN 7 mg/dl (7-24); CHLORIDE 97 mmol/L (98-107); CREATININE 0.69 mg/dL (0.55-1.02); SGOT/AST 27 IU/L (3-35); SGPT/ALT 15 U/L (12-78); SODIUM 135 mmol/L (136-145); TOTAL PROTEIN 5.6 gm/dL (6.4-8.2)
[2021-02-21 15:09] LABS: TROPONIN I < 0.015 ng/ml (<0.045)
[2021-02-21 16:19] VITALS: BP 98/62
[2021-02-21 17:17] VITALS: BP 115/57
[2021-02-21 18:26] VITALS: BP 105/64
[2021-02-22 04:05] VITALS: BP 126/72
[2021-02-22 05:19] LABS: ALBUMIN 2.1 gm/dl (3.1-4.5); BUN 10 mg/dl (7-24); CHLORIDE 99 mmol/L (98-107); CREATININE 0.72 mg/dL (0.55-1.02); POTASSIUM 4.5 mmol/L (3.5-5.1); SGOT/AST 23 IU/L (3-35); SGPT/ALT 17 U/L (12-78); SODIUM 135 mmol/L (136-145)
[2021-02-22 05:20] LABS: ALKALINE PHOSPHATASE 172 U/L (45-117); TOTAL PROTEIN 5.7 gm/dL (6.4-8.2)
[2021-02-22 06:35] LABS: HEMATOCRIT 33.9 % (37.0-47.0); LYMPH # 0.4 10*3/uL (1.3-4.4); LYMPH % 8.7 % (27.0-41.0); MEAN CELL VOLUME 91.9 fl (81.0-99.0); MEAN CORPUSCULAR HGB CONC 31.6 g/dl (33.0-37.0); MEAN PLATELET VOLUME 10.1 fl (9.6-12.3); MONO # 0.1 10*3/uL (0.1-1.0); MONO % 1.5 % (3.0-9.0); NEUT # 3.6 10*3/uL (2.3-7.9); NEUT % 89.3 % (47.0-73.0); PLATELET COUNT AUTOMATED 331 10*3/uL (130-400); RED BLOOD COUNT 3.69 10*6/uL (4.10-5.10); RED CELL DISTRI WIDTH 16.4 % (0-14.5)
[2021-02-22 06:45] VITALS: BP 105/64
[2021-02-22 08:17] VITALS: BP 115/67
[2021-02-22] MEDS ORDERED: KLOR-CON 1010 ME1 PO (10:32)
[2021-02-22] MEDS ORDERED: PROMETHAZINE W473 ML PO (10:34)
[2021-02-22] MEDS ORDERED: OXYCODONE HCL5 MG PO (10:36)
[2021-02-22] MEDS ORDERED: LASIX20 MG PO (10:38)
[2021-02-22] MEDS ORDERED: ZOVIRAX5 GM T (11:07)
[2021-02-22 12:00] VITALS: BP 106/60
[2021-02-22 16:00] VITALS: BP 97/58
[2021-02-22 20:00] VITALS: BP 103/64
[2021-02-23] VITALS: BP 109/63
[2021-02-23 06:29] LABS: HEMATOCRIT 29.9 % (37.0-47.0); MEAN CELL VOLUME 89.8 fl (81.0-99.0); MEAN CORPUSCULAR HGB 28.8 pg (27.0-31.0); MEAN CORPUSCULAR HGB CONC 32.1 g/dl (33.0-37.0); PLATELET COUNT AUTOMATED 344 10*3/uL (130-400); RED BLOOD COUNT 3.33 10*6/uL (4.10-5.10); RED CELL DISTRI WIDTH 16.7 % (0-14.5); WHITE BLOOD COUNT 8.2 10*3/uL (4.8-10.8)
[2021-02-23 06:35] LABS: BUN 16 mg/dl (7-24); CHLORIDE 98 mmol/L (98-107); CREATININE 0.96 mg/dL (0.55-1.02); POTASSIUM 3.9 mmol/L (3.5-5.1); SODIUM 136 mmol/L (136-145)
[2021-02-23 07:29] LABS: PLATELET SUFFICIENCY NORMAL (NORMAL); POLYCHROMASIA SLIGHT; TOTAL CELLS COUNTED 100 #CELLS
[2021-02-23 08:00] VITALS: BP 102/58
[2021-02-23 12:00] VITALS: BP 100/72
[2021-02-23 16:00] VITALS: BP 103/56
[2021-02-23 20:00] VITALS: BP 94/54
[2021-02-24] VITALS: BP 110/60
[2021-02-24 06:12] LABS: HEMATOCRIT 30.3 % (37.0-47.0); MEAN CELL VOLUME 90.7 fl (81.0-99.0); PLATELET COUNT AUTOMATED 342 10*3/uL (130-400); RED BLOOD COUNT 3.34 10*6/uL (4.10-5.10); RED CELL DISTRI WIDTH 16.9 % (0-14.5)
[2021-02-24 06:24] LABS: CREATININE 1.17 mg/dL (0.55-1.02); POTASSIUM 4.2 mmol/L (3.5-5.1)
[2021-02-24 07:31] LABS: PLATELET SUFFICIENCY NORMAL (NORMAL); TOTAL CELLS COUNTED 100 #CELLS
[2021-02-24 08:00] VITALS: BP 110/64
[2021-02-24 12:00] VITALS: BP 92/57
[2021-02-24 16:00] VITALS: BP 117/57
[2021-02-24 20:00] VITALS: BP 99/60
[2021-02-25] VITALS: BP 106/49
[2021-02-25 06:38] LABS: HEMATOCRIT 29.2 % (37.0-47.0); MEAN CORPUSCULAR HGB 29.2 pg (27.0-31.0); MEAN CORPUSCULAR HGB CONC 33.2 g/dl (33.0-37.0); MEAN PLATELET VOLUME 10.2 fl (9.6-12.3); PLATELET COUNT AUTOMATED 304 10*3/uL (130-400); RED BLOOD COUNT 3.32 10*6/uL (4.10-5.10); RED CELL DISTRI WIDTH 16.9 % (0-14.5); WHITE BLOOD COUNT 8.8 10*3/uL (4.8-10.8)
[2021-02-25 06:49] LABS: BUN 23 mg/dl (7-24); CHLORIDE 96 mmol/L (98-107); CREATININE 1.08 mg/dL (0.55-1.02); POTASSIUM 4.2 mmol/L (3.5-5.1); SODIUM 132 mmol/L (136-145)
[2021-02-25 08:00] VITALS: BP 81/53
[2021-02-25 08:03] LABS: PLATELET SUFFICIENCY NORMAL (NORMAL); TOTAL CELLS COUNTED 100 #CELLS
[2021-02-25 08:54] VITALS: BP 82/46
[2021-02-25 12:00] VITALS: BP 94/66
[2021-02-25 16:00] VITALS: BP 101/60
[2021-02-25 20:00] VITALS: BP 95/64
[2021-02-26] VITALS: BP 92/58
[2021-02-26 06:26] LABS: BUN 21 mg/dl (7-24); CHLORIDE 95 mmol/L (98-107); CREATININE 1.03 mg/dL (0.55-1.02); POTASSIUM 3.7 mmol/L (3.5-5.1); SODIUM 135 mmol/L (136-145)
[2021-02-26 08:00] VITALS: BP 111/65
[2021-02-26 12:00] VITALS: BP 104/61
[2021-02-26 16:00] VITALS: BP 102/72
[2021-02-26 20:00] VITALS: BP 100/70
[2021-02-27] VITALS (8 sets, daily range): BP systolic 91–153; BP diastolic 54–85
[2021-02-27 07:12] LABS: BASO % 0.1 % (0.0-1.0); EOS % 0.3 % (1.0-4.0); HEMATOCRIT 32.3 % (37.0-47.0); LYMPH # 0.5 10*3/uL (1.3-4.4); LYMPH % 4.6 % (27.0-41.0); MEAN CELL VOLUME 91.8 fl (81.0-99.0); MEAN CORPUSCULAR HGB 28.7 pg (27.0-31.0); MEAN CORPUSCULAR HGB CONC 31.3 g/dl (33.0-37.0); MONO # 0.5 10*3/uL (0.1-1.0); NEUT # 9.8 10*3/uL (2.3-7.9); NEUT % 89.6 % (47.0-73.0); PLATELET COUNT AUTOMATED 313 10*3/uL (130-400); RED BLOOD COUNT 3.52 10*6/uL (4.10-5.10); RED CELL DISTRI WIDTH 17.2 % (0-14.5); WHITE BLOOD COUNT 10.9 10*3/uL (4.8-10.8)
[2021-02-27 07:44] LABS: CHLORIDE 98 mmol/L (98-107); POTASSIUM 3.6 mmol/L (3.5-5.1); SODIUM 136 mmol/L (136-145)
[2021-02-27 07:48] LABS: BUN 20 mg/dl (7-24); CREATININE 0.91 mg/dL (0.55-1.02)
[2021-02-27] MEDS ORDERED: ATIVAN1 MG PO (10:53)
[2021-02-28] VITALS: BP 93/53
[2021-02-28 06:21] LABS: BASO % 0.1 % (0.0-1.0); EOS % 0.3 % (1.0-4.0); HEMATOCRIT 29.6 % (37.0-47.0); LYMPH # 0.7 10*3/uL (1.3-4.4); LYMPH % 5.9 % (27.0-41.0); MEAN CELL VOLUME 92.8 fl (81.0-99.0); MEAN CORPUSCULAR HGB 29.5 pg (27.0-31.0); MEAN CORPUSCULAR HGB CONC 31.8 g/dl (33.0-37.0); MEAN PLATELET VOLUME 10.4 fl (9.6-12.3); MONO # 0.4 10*3/uL (0.1-1.0); MONO % 3.7 % (3.0-9.0); NEUT # 10.1 10*3/uL (2.3-7.9); NEUT % 89.5 % (47.0-73.0); PLATELET COUNT AUTOMATED 246 10*3/uL (130-400); RED BLOOD COUNT 3.19 10*6/uL (4.10-5.10); RED CELL DISTRI WIDTH 17.2 % (0-14.5); WHITE BLOOD COUNT 11.2 10*3/uL (4.8-10.8)
[2021-02-28 06:35] LABS: BUN 20 mg/dl (7-24); CHLORIDE 99 mmol/L (98-107); CREATININE 0.83 mg/dL (0.55-1.02); POTASSIUM 3.9 mmol/L (3.5-5.1); SODIUM 137 mmol/L (136-145)
[2021-02-28 08:00] VITALS: BP 101/62
[2021-02-28 12:00] VITALS: BP 103/63
[2021-02-28 16:00] VITALS: BP 93/63
[2021-02-28 16:07] LABS: ACID FAST SPEC PROCESSING Concentration (.)
[2021-02-28 20:00] VITALS: BP 90/66; BP 97/58
[2021-03-01] VITALS: BP 96/51
[2021-03-01 00:35] VITALS: BP 86/58
[2021-03-01 05:57] VITALS: BP 98/56
[2021-03-01 08:00] VITALS: BP 106/52
[2021-03-01] MEDS ORDERED: AUGMENTIN 875875 MG PO (11:05)
[2021-03-01] MEDS ORDERED: PREDNISONE10 MG PO (11:05)
[2021-03-01] MEDS ORDERED: LOPRESSOR25 MG PO (11:05)
== END 2021-03-01 12:04 | disposition home health service (06) | DRG 871 ==
LOC: ED 14:12 → 4E 17:35 → EDHOLD 17:35 → 4E 02-22 10:25
PROVIDERS: Family Medicine; Internal Medicine; Internal Medicine Critical Care Medicine; ADMIT Internal Medicine; ATTEND Internal Medicine
PROC: 0BC18ZZ Extirpation of Matter from Trachea, Via Natural or Artificial Opening Endoscopic (ICD-10-PCS; principal; 2021-02-27)
PROC: 0BC98ZZ Extirpation of Matter from Lingula Bronchus, Via Natural or Artificial Opening Endoscopic (ICD-10-PCS; 2021-02-27)
PROC: 0BC48ZZ Extirpation of Matter from Right Upper Lobe Bronchus, Via Natural or Artificial Opening Endoscopic (ICD-10-PCS; 2021-02-27)
PROC: 0BC88ZZ Extirpation of Matter from Left Upper Lobe Bronchus, Via Natural or Artificial Opening Endoscopic (ICD-10-PCS; 2021-02-27)
PROC: 0BC58ZZ Extirpation of Matter from Right Middle Lobe Bronchus, Via Natural or Artificial Opening Endoscopic (ICD-10-PCS; 2021-02-27)
PROC: 0BC38ZZ Extirpation of Matter from Right Main Bronchus, Via Natural or Artificial Opening Endoscopic (ICD-10-PCS; 2021-02-27)
PROC: 0BC78ZZ Extirpation of Matter from Left Main Bronchus, Via Natural or Artificial Opening Endoscopic (ICD-10-PCS; 2021-02-27)
PROC: 0BC68ZZ Extirpation of Matter from Right Lower Lobe Bronchus, Via Natural or Artificial Opening Endoscopic (ICD-10-PCS; 2021-02-27)
PROC: 0BCB8ZZ Extirpation of Matter from Left Lower Lobe Bronchus, Via Natural or Artificial Opening Endoscopic (ICD-10-PCS; 2021-02-27)
DX: A41.9 Sepsis, unspecified organism (principal); J96.01 Acute respiratory failure with hypoxia; E43 Unspecified severe protein-calorie malnutrition; J44.1 Chronic obstructive pulmonary disease with (acute) exacerbation; C34.90 Malignant neoplasm of unspecified part of unspecified bronchus or lung; E87.1 Hypo-osmolality and hyponatremia; J45.901 Unspecified asthma with (acute) exacerbation; J44.0 Chronic obstructive pulmonary disease with (acute) lower respiratory infection; I50.9 Heart failure, unspecified; I25.10 Atherosclerotic heart disease of native coronary artery without angina pectoris; G89.29 Other chronic pain; M54.9 Dorsalgia, unspecified; N18.30 Chronic kidney disease, stage 3 unspecified; R73.9 Hyperglycemia, unspecified; E87.8 Other disorders of electrolyte and fluid balance, not elsewhere classified; E83.51 Hypocalcemia; E66.9 Obesity, unspecified; D64.9 Anemia, unspecified; J84.10 Pulmonary fibrosis, unspecified; J20.9 Acute bronchitis, unspecified; R53.81 Other malaise; Z20.822 Contact with and (suspected) exposure to COVID-19; Z90.710 Acquired absence of both cervix and uterus; Z90.49 Acquired absence of other specified parts of digestive tract; Z98.891 History of uterine scar from previous surgery; Z87.891 Personal history of nicotine dependence; Z82.49 Family history of ischemic heart disease and other diseases of the circulatory system; Z84.1 Family history of disorders of kidney and ureter; I25.2 Old myocardial infarction; Z68.28 Body mass index [BMI] 28.0-28.9, adult